=== PATIENT | female | born 1980 | race Caucasian/White ===

== ENCOUNTER 2018-02-13 09:25 | Emergency (ER) | payer SELFPAY ==
[~2018-02-13 09:25] MED LIST: Iopamidol 370 76% 100 ML VIAL ONE
[2018-02-13] MEDS ORDERED: Pantoprazole 40 MG VIAL ONE (09:56)
[2018-02-13] MEDS ORDERED: Ketorolac Tromethamine 30 MG/ML VIAL ONE (09:56)
[2018-02-13 09:59] LABS: Pregnancy Test - Urine (BHCG) Negative (Negative); Pregu Control Background? CLEAR/WHITE (CLR/WHITE); Pregu Control Bar Appear? YES (CONTROL BAR); Specific Gravity 1.007 (1.002-1.036)
[2018-02-13 10:00] LABS: Bilirubin Negative (Negative); Clarity Turbid (Clear); Glucose, Urine (Dipstick) Negative (Negative); Leukocyte Trace (Negative); Nitrite Negative (Negative); Protein, Urine (Dipstick) 100 mg/dL (Neg-Trace); Specific Gravity, Urine 1.007 (1.005-1.030); Urobilinogen 0.2 mg/dL (0.2-1.0)
[2018-02-13 10:01] LABS: Blood, Urine Large (Negative)
[2018-02-13 10:16] LABS: ALT (SGPT) 8 U/L (8-55); AST (SGOT) 14 U/L (5-34); Albumin 4.6 g/dL (3.5-5.0); Alkaline Phosphatase 53 U/L (40-150); Anion Gap 11 mmol/L (10-20); BUN (Urea Nitrogen) 12 mg/dL (7.0-18.7); Bilirubin, Total 0.4 mg/dL (0.2-1.2); Calc. Creatinine Clearance 0 mL/min (70-130); Calcium 9.6 mg/dL (7.8-10.44); Carbon Dioxide 26 mmol/L (22-29); Chloride 107 mmol/L (98-107); Estimated GFR-MDRD 84; Globulin 3.1 g/dL (2.4-3.5); Glucose 90 mg/dL (70-105); Lipase 30 U/L (8-78); Protein, Total 7.7 g/dL (6.0-8.3); Sodium 140 mmol/L (136-145)
[2018-02-13 10:19] LABS: #Basophils 0.1 thou/uL (0.0-0.2); #Eosinphils 0.2 thou/uL (0.0-0.7); #Lymphocytes 1.8 thou/uL (1.20-3.40); #Monocytes 0.8 thou/uL (0.11-0.59); #Neutrophils 5.8 thou/uL (1.40-6.50); %Basophils 1.4 % (0.0-1.0); %Eosinophils 1.8 % (0.0-10.0); %Lymphocytes 20.8 % (21.0-51.0); %Monocytes 9.6 % (0.0-10.0); %Neutrophils 66.5 % (42.0-75.0); Hemoglobin 14.5 g/dL (12.0-16.0); Mean Corpuscular HGB CONC 36.1 g/dL (32.0-36.0); Mean Corpuscular Hemoglobin 29.9 pg (27.0-31.0); Mean Platelet Volume 7.3 fL (7.4-10.4); Platelet Count 313 thou/uL (130-400); RBC Distribution Width 13.8 % (11.5-14.5); Red Blood Cell (RBC) Count 4.85 mill/uL (4.20-5.40); White Blood Cell (WBC) Count 8.7 thou/uL (4.8-10.8)
[2018-02-13 10:39] LABS: Bacteria/HPF 1+ HPF (None Seen); RBC/HPF GREATER THAN 50-TNTC HPF (0-3); Squamous Epithelial 0-3 HPF (0-3)
[2018-02-13] MEDS ORDERED: Morphine 4 MG/ML Carpuject ONE ×2 (10:55→12:30)
[2018-02-13] MEDS ORDERED: cefTRIAXone\\ROCEPHIN 1 GM VIAL ONE (12:31)
--- NOTE | 2018-02-13 20:37 | CT ---
CT ABDOMEN AND PELVIS WITH CONTRAST 02/13/[address] of the abdomen and pelvis was performed. for evaluation of abdominal pain. Axial slices wer e acquired after giving IV contrast. No oral contrast was given by request. Coronal and sagittal aviva nstructions were done afterwards. The liver, spleen, pancreas, adrenal glands, and kidneys were unremarkable in appearance. There has b een a prior cholecystectomy. The aorta is normal in caliber. The bowel shows no distention. I see no inflammatory changes around the base of the cecum and there do appear to be a few clips there that ar e probably from a prior appendectomy. No free air of free fluid was seen in the upper abdomen. CT of the pelvis was significant for fluid density in the right adnexal region and tracking into the cul-de-sac on the right side. It is difficult to separate this from the surrounding fluid filling loo ps of bowel, but it seems separate from it. A pelvic ultrasound is recommended for further evaluation . I would worry about a pelvic based infection such as PID in this location. No pelvic masses per se were seen. IMPRESSION: Nondescript are of fluid in the right adnexal region and extending into the cul-de-sac. Pelvic infect ion is possible. Recommend pelvic ultrasound. POS: HOME
--- NOTE | 2018-02-13 22:26 | ULT ---
PELVIC ULTRASOUND WITH ENDOVAGINAL IMAGIN02/13/18 Ultrasonography of the pelvis was performed for evaluation of pain and abnormal findings on the CT sc an. Transabdominal and endovaginal imaging were accomplished since the transabdominal images were ins ufficient to show the adnexa well enough. The uterus is retroverted and measures 8.8 x 5.2 x 5.5 cm. The endometrium is a normal 7 mm thick. The right ovary is visualized and measures about 3.0 cm in size. Blood flow was noted. Around it, how ever, is combination of fluid and perhaps debris or clot. Peristalsing bowel is seen in the vicinity but was clearly separate from this at real time in discussion with the technologist. The left ovary w as never visualized, even on the endovaginal imaging. There was a trace of free fluid on the left. IMPRESSION: Complex area of fluid and echoes in the right adnexal region around the ovary which was visualized. A pelvic infection, such as PID, would be a consideration. Gynecological followup needed. POS: HOME
[2018-02-14 22:21] LABS: Chlamydia by PCR Not Detected (NotDetected); GC by PCR Not Detected (NotDetected)
== END 2018-02-13 13:15 | disposition home or self-care (01) ==
LOC: BURERS 09:25
DX: R10.10 Upper abdominal pain, unspecified (principal)
CPT/HCPCS: 74177; 76856; 80053; 81003; 81015; 81025; 83690; 85025; 87480; 87491; 87510; 87591; 87660; 96361; 96374; 96375; 96376; A4216; C9113; J0696; J1885; J2270